=== PATIENT | female | born 1945 | race Hispanic/Latino ===

== ENCOUNTER 2024-02-17 15:32 | Outpatient (CLI) | payer MEDICARE | END 2024-02-17 15:33 | disposition home or self-care (01) | LOC: BICULT 15:32 | PROVIDERS: ATTEND Family Medicine | DX: R31.9 Hematuria, unspecified (principal) | CPT/HCPCS: 76770 ==

== ENCOUNTER 2024-05-30 11:47 | Outpatient (CLI) | payer MEDICARE | END 2024-05-30 11:48 | disposition home or self-care (01) | LOC: SCSRAD 11:47 | PROVIDERS: ATTEND Nurse Practitioner Family | DX: M54.9 Dorsalgia, unspecified (principal) | CPT/HCPCS: 72070; 72100 ==

== ENCOUNTER 2024-09-20 08:16 | Outpatient (CLI) | payer MEDICARE ==
[2024-09-20] MEDS ORDERED: Iopamidol 370 76% 100 ML VIAL ONE (09:41)
== END 2024-09-20 08:17 | disposition home or self-care (01) ==
LOC: CT 08:16
PROVIDERS: ATTEND Urology
DX: R31.29 Other microscopic hematuria (principal); K44.9 Diaphragmatic hernia without obstruction or gangrene; K80.20 Calculus of gallbladder without cholecystitis without obstruction; N32.89 Other specified disorders of bladder
CPT/HCPCS: 36415; 74178; 82565